=== PATIENT | male | born 1945 | race Caucasian/White ===

== ENCOUNTER 2017-11-04 11:14 | Emergency (ER) | payer MEDICARE ==
[~2017-11-04] VITALS: Ht 177.8 cm; Wt 90.7 kg
[2017-11-04 11:18] VITALS: BP 117/93; PULSE 102; RESP 20; TEMP 97.7; O2SAT 96
[2017-11-04 11:30] VITALS: BP 140/60; PULSE 111; RESP 18; O2SAT 98
--- NOTE | 2017-11-04 11:40 | PD ---
HPI Chief Complaint: Respiratory Distress Time Seen by Provider: 11:26 Travel History International Travel<30 days: No Contact w/Intl Traveler<30days: No Traveled to known affect area: No History of Present Illness HPI This patient complains of shortness of breath. Duration is 2-3 weeks. Been steadily progressive. He is getting swelling in his legs. He has had some tightness in his chest on and off. He is currently not having any chest pain. Denies productive cough or fever or congestion or runny nose. He found an old prescription from 2014 for Lasix and took a 20 mg tablet this morning. He had a stress test couple of years ago. Denies history of lung disease. Symptom severity is moderate. No alleviating factors. No exacerbating factors. PFSH Social History Alcohol Use: No Tobacco Use: No Substance Use: No Allergies-Medications (Allergen,Severity, Reaction): Coded Allergies: flecainide (Verified Adverse Reaction, Intermediate, NAUSEA, 11/04/17) Reported Meds & Prescriptions Reported Meds & Active Scripts Active Reported Testosterone Topical (Testosterone) 10 Mg/0.5 Gm Gel 5 Mg TOPICAL DAILY 10 mg/actuation Lasix (Furosemide) 20 Mg Tab 20 Mg PO DAILY Anastrozole 1 Mg Tab 1 Mg PO ,,SAT Eliquis (Apixaban) 5 Mg Tab 5 Mg PO BID Review of Systems General / Constitutional: No: Fever Eyes: No: Visual changes HENT: No: Headaches Cardiovascular: Positive: Chest Pain or Discomfort, Irregular Rhythm, Tachycardia, Edema Respiratory: Positive: Shortness of Breath Gastrointestinal: No: Abdominal Pain Genitourinary: No: Dysuria Musculoskeletal: Positive: Edema, No: Pain Skin: No Rash Neurologic: No: Weakness Psychiatric: No: Depression Endocrine: No: Polydipsia Hematologic/Lymphatic: No: Easy Bruising Physical Exam Narrative GENERAL: Well-nourished, well-developed patient in no apparent distress. SKIN: Focused skin assessment reveals no rash and nodules. Skin is Warm and dry. HEAD: Atraumatic. Normocephalic. EYES: Pupils equal and round. No scleral icterus. No injection or drainage. ENT: No nasal bleeding or discharge. Mucous membranes pink and moist. NECK: Trachea midline. No JVD. CARDIOVASCULAR: Irregularly irregular rhythm. No murmur appreciated. Heart rate is 110 RESPIRATORY: No accessory muscle use. Sparse basilar crackles. Breath sounds equal bilaterally. GASTROINTESTINAL: Abdomen soft, non-tender, nondistended. Hepatic and splenic margins not palpable. MUSCULOSKELETAL: No obvious deformities. No clubbing. No cyanosis. Trace symmetric lower extremity edema from the mid maldonado down NEUROLOGICAL: Awake and alert. No obvious cranial nerve deficits. Motor grossly within normal limits. Normal speech. PSYCHIATRIC: Appropriate mood and affect; insight and judgment normal. Data Data Last Documented VS Vital Signs Date Time Temp Pulse Resp B/P (MAP) Pulse Ox O2 Delivery O2 Flow Rate FiO2 11/04/17 12:20 98 18 134/81 (98) 97 Room Air 11/04/17 11:18 97.7 Orders Orders Electrocardiogram (11/04/17 11:35) Basic Metabolic Panel (Bmp) (11/04/17 11:35) Ckmb (Isoenzyme) Profile (11/04/17 11:35) Complete Blood Count With Diff (11/04/17 11:35) Magnesium (Mg) (11/04/17 11:35) Troponin I (11/04/17 11:35) Chest, Single Ap (11/04/17 11:35) Ecg Monitoring (11/04/17 11:35) Iv Access Insert/Monitor (11/04/17 11:35) Oximetry (11/04/17 11:35) Sodium Chloride 0.9% Flush (Ns Flush) (11/04/17 11:45) Furosemide Inj (Lasix Inj) (11/04/17 11:45) Labs Laboratory Tests Test 11/04/17 11:40 White Blood Count 6.4 TH/MM3 Red Blood Count 5.08 MIL/MM3 Hemoglobin 15.6 GM/DL Hematocrit 46.4 % Mean Corpuscular Volume 91.3 FL Mean Corpuscular Hemoglobin 30.7 PG Mean Corpuscular Hemoglobin Concent 33.6 % Red Cell Distribution Width 15.4 % Platelet Count 235 TH/MM3 Mean Platelet Volume 10.2 FL Neutrophils (%) (Auto) 60.4 % Lymphocytes (%) (Auto) 28.0 % Monocytes (%) (Auto) 8.9 % Eosinophils (%) (Auto) 1.7 % Basophils (%) (Auto) 1.0 % Neutrophils # (Auto) 3.8 TH/MM3 Lymphocytes # (Auto) 1.8 TH/MM3 Monocytes # (Auto) 0.6 TH/MM3 Eosinophils # (Auto) 0.1 TH/MM3 Basophils # (Auto) 0.1 TH/MM3 CBC Comment DIFF FINAL Differential Comment Blood Urea Nitrogen 28 MG/DL Creatinine 1.40 MG/DL Random Glucose 95 MG/DL Calcium Level 9.8 MG/DL Magnesium Level 2.2 MG/DL Sodium Level 143 MEQ/L Potassium Level 4.1 MEQ/L Chloride Level 111 MEQ/L Carbon Dioxide Level 22.9 MEQ/L Anion Gap 9 MEQ/L Estimat Glomerular Filtration Rate 50 ML/MIN Total Creatine Kinase 74 U/L Troponin I 0.05 NG/ML MDM Medical Decision Making Medical Screen Exam Complete: Yes Emergency Medical Condition: Yes Medical Record Reviewed: Yes Differential Diagnosis ACS, angina, A. fib with RVR, pulmonary edema Narrative Course I have reviewed the patient's electronic medical record. IV placed and labs sent. patient takes Eliquis so I do not give him aspirin therapy I reviewed his EKG which shows A. fib at a rate in the 90s Extended cardiac monitoring confirms A. fib with a rate between 100-115 I reviewed his chest x-ray which is clear Gave him 40 milligrams IV Lasix He has put out 600 cc of urine Labs are normal including cardiac enzymes Given his chest tightness and dyspnea I recommended telemetry observation in the hospital. Patient thought about it and discussed with his . He is going to sign out AGAINST MEDICAL ADVICE. Advised him to return if he worsens or changes his mind. Diagnosis Primary Impression: Shortness of breath Additional Impressions: Atrial fibrillation Qualified Codes: I48.2 - Chronic atrial fibrillation Leg edema Chest tightness Disposition: 07 AGAINST MEDICAL ADVICE Mathew Goldberg MD Nov 04, 2017 11:40
[2017-11-04 11:45] LABS: AUTOMATED NEUTROPHIL # 3.8 TH/MM3 (1.8-7.7); BASOPHIL # 0.1 TH/MM3 (0-0.2); EOSINOPHIL # 0.1 TH/MM3 (0-0.4); EOSINOPHIL % 1.7 % (0.0-4.0); HEMATOCRIT 46.4 % (39.0-51.0); HEMOGLOBIN 15.6 GM/DL (13.0-17.0); LYMPHOCYTE # 1.8 TH/MM3 (1.0-4.8); MEAN CELL VOLUME 91.3 FL (80.0-100.0); MEAN CORPUSCULAR HEMOGLOBIN 30.7 PG (27.0-34.0); MEAN CORPUSCULAR HGB CONC 33.6 % (32.0-36.0); MEAN PLATELET VOLUME 10.2 FL (7.0-11.0); MONO % 8.9 % (0.0-8.0); MONOCYTE # 0.6 TH/MM3 (0-0.9); NEUT % 60.4 % (16.0-70.0); PLATELET COUNT 235 TH/MM3 (150-450); RED BLOOD COUNT 5.08 MIL/MM3 (4.50-5.90); RED CELL DISTRIBUTION WIDTH 15.4 % (11.6-17.2); WHITE BLOOD COUNT 6.4 TH/MM3 (4.0-11.0)
[2017-11-04] MEDS ORDERED: SODIUM CHLORIDE 0.9% FLUSH 10 ML FLUSH IVF PRN (11:45)
[2017-11-04] MEDS ORDERED: FUROSEMIDE 40 MG/4 ML VIAL IV PUSH ONE (11:45)
[2017-11-04 11:58] LABS: BICARBONATE 22.9 MEQ/L (21.0-32.0); CALCIUM 9.8 MG/DL (8.5-10.1); MAGNESIUM 2.2 MG/DL (1.5-2.5)
[2017-11-04] MEDS ORDERED: FURO1TAB62 PO (11:58)
[2017-11-04] MEDS ORDERED: TEST1GEL10 TOPICAL (11:58)
[2017-11-04] MEDS ORDERED: ANAS1TAB PO (11:58)
[2017-11-04] MEDS ORDERED: APIX5TAB PO (11:58)
[2017-11-04 12:02] LABS: CREATININE 1.4 MG/DL (0.60-1.30)
[2017-11-04 12:06] LABS: TROPONIN I 0.05 NG/ML (0.02-0.05)
--- NOTE | 2017-11-04 12:09 | RADRPT ---
EXAM DATE: 11/04/2017 12:01 PM EDT AGE/SEX: 72 years / Male INDICATIONS: Chest pain. CLINICAL DATA: This is the patient's initial encounter. Patient reports that signs and symptoms have been present for 1 day and indicates a pain score of 5/10. MEDICAL/SURGICAL HISTORY: None. None. COMPARISON: No prior exams available for comparison. FINDINGS: Cardiomegaly. Clear lungs. Osseous structures are intact. CONCLUSION: Clear lungs. Electronically signed by: Luis Miguel De La Rosa MD 11/04/2017 12:08 PM EDT
[2017-11-04 12:20] VITALS: BP 134/81; PULSE 98; RESP 18; O2SAT 97
--- NOTE | 2017-11-05 15:02 | EKG ---
Date Performed: 11/04/2017 Time Performed: 11:42:50 PTAGE: 72 years EKG: ATRIAL FIBRILLATION POSSIBLE RIGHT VENTRICULAR CONDUCTION DELAY MINIMAL VOLTAGE CRITERIA FO R LVH, CONSIDER NORMAL VARIANT POSSIBLE ANTERIOR MYOCARDIAL INFARCTION - age indeterminate Consider I NFERIOR MYOCARDIAL INFARCTION - age indeterminate Left anterior fascicular block ABNORMAL ECG NO PREVIOUS TRACING DOCTOR: Devante Shah Interpretating Date/Time 11/05/2017 14:59:27
== END 2017-11-04 13:01 | disposition left against medical advice (07) ==
LOC: PHED 11:14
DX: R06.02 Shortness of breath (principal); I48.91 Unspecified atrial fibrillation; R60.0 Localized edema; R07.89 Other chest pain; I25.2 Old myocardial infarction; R94.31 Abnormal electrocardiogram [ECG] [EKG]; Z79.899 Other long term (current) drug therapy; Z88.8 Allergy status to other drugs, medicaments and biological substances
CPT/HCPCS: 71045; 80048; 82550; 83735; 84484; 85025; 93005; 99285; J1940